=== PATIENT | female | born 1985 | race African-American/Black ===

== ENCOUNTER 2016-11-30 16:41 | Emergency (ER) | payer MEDICAID ==
[~2016-11-30] VITALS: Ht 160 cm; Wt 94.0 kg
[2016-11-30 16:51] VITALS: BP 123/79
== END 2016-11-30 23:00 | disposition left against medical advice (07) ==
LOC: ER 22:54
DX: Z53.21 Procedure and treatment not carried out due to patient leaving prior to being seen by health care provider (principal)